=== PATIENT | male | born 1960 | race Caucasian/White ===

== ENCOUNTER 2025-03-24 09:58 | Inpatient (IN) ==
[2025-03-24] MEDS ORDERED: IOPAMIDOL 100 ML BOTTLE IV ONE (09:59)
[2025-03-24] MEDS: 0.9 % SODIUM CHLORIDE 1,000 ML IV ONE (10:40)
[2025-03-24 11:20] LABS: Bacteria,Urine Few /hpf (0); Bilirubin,Urine Negative (Negative); Color,Urine Yellow; Glucose,Urine (UA) Negative (Negative); Ketones,Urine 80 mg/dL (Negative); Leukocyte Esterase,Urine Negative /uL (Negative); Mucus,Urine Many /hpf; PH,Urine 5.5 (5.0-9.0); Protein,Urine 100 mg/dL (Negative); Specific Gravity,Urine >= 1.030 (1.000-1.035); Urobilinogen,Urine Normal
[2025-03-24 11:31] LABS: Basophils # (Auto) 0.04 K/mcL (0.00-0.30); Basophils % (Auto) 0.5 % (0.0-2.0); Eosinophils # (Auto) 0.18 K/mcL (0.00-0.70); Eosinophils % (Auto) 2.0 % (0.0-7.0); Hematocrit 36.9 % (40.1-51.0); Hemoglobin 12.6 g/dL (13.7-17.5); Lymphocytes # (Auto) 1.22 K/mcL (1.50-4.80); Lymphocytes % (Auto) 13.8 % (15.5-49.0); Mean Corpuscular HGB Conc 34.1 g/dL (31.0-36.0); Monocytes # (Auto) 1.36 K/mcL (0.10-0.90); Monocytes % (Auto) 15.4 % (1.0-12.0); Neutrophils % (Auto) 66.7 % (38.0-78.0); Platelet Count 184 K/mcL (140-440); RBC 3.97 M/mcL (4.63-6.08); WBC 8.8 K/mcL (4.5-11.0)
[2025-03-24 11:47] LABS: ALT/SGPT 19 U/L (<40); AST/SGOT 21 U/L (<40); Albumin 3.7 gm/dL (3.2-5.2); Albumin/Globulin Ratio 1.2 (1.0-2.3); Alkaline Phosphatase 58 U/L (39-117); Anion Gap 11.0 (8.0-16.0); Bilirubin,Total 0.6 mg/dL (0.1-1.0); Blood Urea Nitrogen 13 mg/dL (8-23); Calcium 8.4 mg/dL (8.6-10.4); Carbon Dioxide 22 mmol/L (22-30); Chloride 101 mmol/L (96-108); Globulin 3.0 gm/dL (2.2-3.7); Glucose 85 mg/dL (70-105); Potassium 3.6 mmol/L (3.3-5.1); Sodium 134 mmol/L (133-145)
[2025-03-24] MEDS: PIPERACILLIN SODIUM/TAZOBACTAM 3.375 GM in DEXTROSE 5% IN WATER 50 ML IV ONE (11:59)
[2025-03-24] MEDS: 0.9 % SODIUM CHLORIDE 1,000 ML IV SCH (12:44)
[2025-03-24 13:05] LABS: INR 1.0 (0.9-1.1); Prothrombin Time 14.3 sec (11.9-14.5)
[2025-03-24] MEDS ORDERED: fentaNYL 100 MCG/2 ML VIAL ONE ×2 (14:52→16:57)
[2025-03-24] MEDS ORDERED: SUGAMMADEX SODIUM 200 MG/2 ML VIAL IV ONE (14:53)
[2025-03-24] MEDS ORDERED: PROPOFOL 200 MG/20 ML VIAL IV ONE (14:53)
[2025-03-24] MEDS ORDERED: DEXAMETHASONE 10 MG/ML VIAL ONE (14:54)
[2025-03-24] MEDS ORDERED: ROCURONIUM 10 MG/ML ML IV ONE (14:54)
[2025-03-24] MEDS ORDERED: GLYCOPYRROLATE 0.2 MG/ML VIAL IV ONE (14:54)
[2025-03-24] MEDS ORDERED: LIDOCAINE 2% PF 5 ML VIAL ONE (14:54)
[2025-03-24] MEDS ORDERED: ONDANSETRON 4 MG/2 ML VIAL ONE (14:54)
[2025-03-24] MEDS ORDERED: MAGNESIUM SULFATE 2 GM/50 ML BAG IV ONE (15:17)
[2025-03-24] MEDS ORDERED: FAMOTIDINE/PF 20 MG/2 ML VIAL IV ONE (15:52)
[2025-03-24] MEDS ORDERED: IPRATROPIUM/ALBUTEROL 3 ML AMPUL.NEB NEB PRN (16:09)
[2025-03-24] MEDS: fentaNYL 100 MCG/2 ML VIAL IV PRN (17:49)
[2025-03-24] MEDS: BENZOCAINE/MENTHOL 1 LOZENGE PO PRN (17:52)
[2025-03-24] MEDS: HYDROmorphone 0.5 MG/0.5 ML SYRINGE IV PRN ×2 (17:57→18:45)
[2025-03-24] MEDS: LACTATED RINGERS 1,000 ML IV SCH (18:29)
[2025-03-24] MEDS: ACETAMINOPHEN 1,000 MG/100 ML BAG IV SCH (18:30)
[2025-03-24] MEDS ORDERED: ONDANSETRON 4 MG/2 ML VIAL IV PRN (19:45)
[2025-03-24] MEDS: PIPERACILLIN SODIUM/TAZOBACTAM 4.5 GM in DEXTROSE 5% IN WATER 100 ML IV SCH (19:47)
[2025-03-25 07:00] LABS: Basophils # (Auto) 0.02 K/mcL (0.00-0.30); Basophils % (Auto) 0.2 % (0.0-2.0); Eosinophils # (Auto) 0 K/mcL (0.00-0.70); Eosinophils % (Auto) 0 % (0.0-7.0); Hematocrit 35.6 % (40.1-51.0); Hemoglobin 12.1 g/dL (13.7-17.5); Lymphocytes # (Auto) 0.75 K/mcL (1.50-4.80); Lymphocytes % (Auto) 6.2 % (15.5-49.0); Mean Corpuscular HGB Conc 34.0 g/dL (31.0-36.0); Monocytes # (Auto) 0.56 K/mcL (0.10-0.90); Monocytes % (Auto) 4.6 % (1.0-12.0); Neutrophils % (Auto) 88.5 % (38.0-78.0); Platelet Count 189 K/mcL (140-440); RBC 3.76 M/mcL (4.63-6.08); WBC 12.1 K/mcL (4.5-11.0)
[2025-03-25 07:20] LABS: ALT/SGPT 20 U/L (<40); AST/SGOT 18 U/L (<40); Albumin 3.4 gm/dL (3.2-5.2); Albumin/Globulin Ratio 1.1 (1.0-2.3); Alkaline Phosphatase 52 U/L (39-117); Anion Gap 13.0 (8.0-16.0); Bilirubin,Direct 0.3 mg/dL (<0.3); Bilirubin,Total 0.4 mg/dL (0.1-1.0); Blood Urea Nitrogen 12 mg/dL (8-23); Calcium 8.0 mg/dL (8.6-10.4); Carbon Dioxide 19 mmol/L (22-30); Chloride 102 mmol/L (96-108); Globulin 3.1 gm/dL (2.2-3.7); Glucose 139 mg/dL (70-105); Phosphorous 3.1 mg/dL (2.5-4.5); Potassium 4.1 mmol/L (3.3-5.1); Sodium 134 mmol/L (133-145); Triglycerides 76 mg/dL (<150); Uric Acid 6.9 mg/dL (2.5-8.0)
[2025-03-25] MEDS: POLYETHYLENE GLYCOL 3350 17 GM PACKET PO SCH (20:00)
[2025-03-26 08:25] LABS: ALT/SGPT 20 U/L (<40); AST/SGOT 18 U/L (<40); Albumin 3.3 gm/dL (3.2-5.2); Albumin/Globulin Ratio 1.1 (1.0-2.3); Alkaline Phosphatase 50 U/L (39-117); Anion Gap 11.0 (8.0-16.0); Bilirubin,Direct < 0.2 mg/dL (0-0.3); Bilirubin,Total 0.3 mg/dL (0.1-1.0); Blood Urea Nitrogen 14 mg/dL (8-23); Calcium 8.2 mg/dL (8.6-10.4); Carbon Dioxide 22 mmol/L (22-30); Chloride 104 mmol/L (96-108); Globulin 2.9 gm/dL (2.2-3.7); Glucose 106 mg/dL (70-105); Phosphorous 2.4 mg/dL (2.5-4.5); Potassium 3.9 mmol/L (3.3-5.1); Sodium 137 mmol/L (133-145); Triglycerides 126 mg/dL (<150); Uric Acid 3.9 mg/dL (2.5-8.0)
[2025-03-26] MEDS: POLYETHYLENE GLYCOL 3350 17 GM PACKET PO SCH (08:56)
[2025-03-26 09:52] LABS: Basophils # (Auto) 0.04 K/mcL (0.00-0.30); Basophils % (Auto) 0.3 % (0.0-2.0); Eosinophils # (Auto) 0.06 K/mcL (0.00-0.70); Eosinophils % (Auto) 0.5 % (0.0-7.0); Hematocrit 34.7 % (40.1-51.0); Hemoglobin 11.4 g/dL (13.7-17.5); Lymphocytes # (Auto) 1.45 K/mcL (1.50-4.80); Lymphocytes % (Auto) 11.5 % (15.5-49.0); Mean Corpuscular HGB Conc 32.9 g/dL (31.0-36.0); Monocytes # (Auto) 0.72 K/mcL (0.10-0.90); Monocytes % (Auto) 5.7 % (1.0-12.0); Neutrophils % (Auto) 81.0 % (38.0-78.0); Platelet Count 202 K/mcL (140-440); RBC 3.61 M/mcL (4.63-6.08); WBC 12.6 K/mcL (4.5-11.0)
[2025-03-27 06:28] LABS: Basophils # (Auto) 0.04 K/mcL (0.00-0.30); Basophils % (Auto) 0.3 % (0.0-2.0); Eosinophils # (Auto) 0.25 K/mcL (0.00-0.70); Eosinophils % (Auto) 2.2 % (0.0-7.0); Hematocrit 35.4 % (40.1-51.0); Hemoglobin 11.7 g/dL (13.7-17.5); Lymphocytes # (Auto) 1.64 K/mcL (1.50-4.80); Lymphocytes % (Auto) 14.3 % (15.5-49.0); Mean Corpuscular HGB Conc 33.1 g/dL (31.0-36.0); Monocytes # (Auto) 1.01 K/mcL (0.10-0.90); Monocytes % (Auto) 8.8 % (1.0-12.0); Neutrophils % (Auto) 73.1 % (38.0-78.0); Platelet Count 211 K/mcL (140-440); RBC 3.72 M/mcL (4.63-6.08); WBC 11.5 K/mcL (4.5-11.0)
[2025-03-27 06:49] LABS: ALT/SGPT 17 U/L (<40); AST/SGOT 17 U/L (<40); Albumin 3.2 gm/dL (3.2-5.2); Albumin/Globulin Ratio 1.1 (1.0-2.3); Alkaline Phosphatase 53 U/L (39-117); Anion Gap 11.0 (8.0-16.0); Bilirubin,Direct 0.2 mg/dL (<0.3); Bilirubin,Total 0.4 mg/dL (0.1-1.0); Blood Urea Nitrogen 11 mg/dL (8-23); Calcium 8.2 mg/dL (8.6-10.4); Carbon Dioxide 21 mmol/L (22-30); Chloride 103 mmol/L (96-108); Globulin 2.9 gm/dL (2.2-3.7); Glucose 83 mg/dL (70-105); Phosphorous 3.1 mg/dL (2.5-4.5); Potassium 4.0 mmol/L (3.3-5.1); Sodium 135 mmol/L (133-145); Triglycerides 134 mg/dL (<150); Uric Acid 3.6 mg/dL (2.5-8.0)
== END 2025-03-27 14:02 | disposition home or self-care (01) | DRG 399 ==
LOC: ED 09:58 → MEDSUR 14:49 → SUR 14:49 → OBSVTOIN 18:11
PROVIDERS: ADMIT Family Medicine Adult Medicine; ATTEND Family Medicine Adult Medicine
PROC: LAPAPPY (ICD-10-PCS; 2025-03-24 15:28)